=== PATIENT | female | born 1990 ===

== ENCOUNTER → 2019-08-25 14:56 | Outpatient (CLI) | payer OTHER, SELFPAY | DX: Z23 Encounter for immunization (principal) | CPT/HCPCS: 90471; 90686 ==

== ENCOUNTER → 2020-08-30 04:19 | Outpatient (CLI) | payer OTHER, SELFPAY | PROVIDERS: Referring Provider Internal Medicine; Visit Provider Internal Medicine | DX: Z23 Encounter for immunization (principal) | CPT/HCPCS: 90471; 90686 ==

== ENCOUNTER → 2021-01-16 09:04 | Outpatient (CLI) | payer OTHER, SELFPAY ==
[2021-01-16] MEDS: COVID-19 VACC, Ad26(JANSSEN)/PF 0.5 ML IM (09:21)
== END ==
PROVIDERS: Visit Provider Internal Medicine
DX: Z23 Encounter for immunization (principal)
CPT/HCPCS: 0031A; 91303

== ENCOUNTER 2021-02-20 09:54 | Emergency (ER) | payer OTHER, SELFPAY ==
[2021-02-20 10:03] VITALS: BP 125/77; PULSE 64; RESP 16; TEMP 36.1; O2SAT 100
--- NOTE | 2021-02-20 11:21 | ED.GENADULT ---
HPI - General Adult General Chief complaint: Environmental Exposure Stated complaint: needle stick, from surgical services Time Seen by Provider: 02/20/21 10:42 Source: patient Mode of arrival: Ambulatory Limitations: no limitations History of Present Illness HPI narrative: Patient is a 30-year-old female who presents with a right thumb needlestick at the happened today while at work. She states that her tetanus and hepatitis vaccines she thinks are up to date. She is unsure when her last tetanus was but she was hired 2 years ago. Onset (ago): hour(s) Related Data Home Medications Medication Instructions Recorded Confirmed No Known Home Medications 11/14/20 11/14/20 Allergies Allergy/AdvReac Type Severity Reaction Status Date / Time No Known Drug Allergies Allergy Unverified 11/14/20 09:53 Review of Systems Review of Systems Narrative: GENERAL: Denies chills,fever HEENT: Denies throat pain RESPIRATORY: Denies dyspnea, cough, wheezing CARDIOVASCULAR: Denies chest pain, palpitations GASTROINTESTINAL: Denies nausea, vomiting MUSCULOSKELETAL: Denies extremity pain, injury SKIN: See HPI NEUROLOGIC: Denies weakness, dizziness, headache, numbness 8 point review of systems is negative except for those stated above and HPI Patient History Medical History No significant medical problems Social History Smoking Status: Never smoker Smoking Status: Never smoker alcohol intake frequency: 0-2 drinks per day Substance Use Type: does not use Exam Initial Vital Signs Initial Vital Signs: Vital Signs Temperature 97.0 F L 02/20/21 10:03 Pulse Rate 64 02/20/21 10:03 Respiratory Rate 16 02/20/21 10:03 Blood Pressure 125/77 02/20/21 10:03 Pulse Oximetry 100 02/20/21 10:03 GENERAL: Well-appearing, well-nourished and in no acute distress. CARDIOVASCULAR: peripheral pulses in tact, cap refill <2 sec RESPIRATORY: No respiratory distress, speaks in full sentences without difficulty EXTREMITIES: Normal range of motion, no clubbing or edema. Neurovascularly intact NEUROLOGICAL: Cranial nerves II through XII grossly intact. Normal gait and speech. SKIN: Warm, dry, no petechiae, no rashes or lesions. Course Orders Ordered: Discontinued Medications Diphtheria/Tetanus/Acell Pertussis (Tet,Diph,Pertuss(Acell),Vac/Pf 0.5 Ml Syringe) 0.5 ml IM .ONCE ONE Stop: 02/20/21 11:34 Last Admin: 02/20/21 12:01 Dose: 0.5 ml Documented by: SAUNDRA Vital Signs Vital signs: Vital Signs - 8 hr 02/20/21 10:03 Temperature 97.0 F L Pulse Rate 64 Respiratory Rate 16 Blood Pressure 125/77 Pulse Oximetry 100 Medical Decision Making Lab Data Labs: Lab Results 02/20/21 02/20/21 Range/Units 11:03 11:03 ALT 20 (<35) IU/L Hep Bs Antigen Negative (NEGATIVE) s/c Hepatitis C Antibody Negative (NEGATIVE) s/c HIV 1&2 Ab/P24 Ag 4thGn Negative (NEGATIVE) MDM Narrative Medical decision making narrative: At this time patient has accepted a Tdap but will wait on hepatitis-B immunoglobulin and HIV treatment until sources information has returned Discharge Plan Departure Patient Disposition: Home Clinical Impression: Exposure to body fluid Instructions: How to Handle Body Fluid Exposure -- Healthcare 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
[2021-02-20 11:27] LABS: Alanine Aminotransferase 20 IU/L (<35)
[2021-02-20] MEDS: TET,DIPH,PERTUSS(ACELL),VAC/PF 0.5 ML SYRINGE IM (12:01)
[2021-02-20 12:23] LABS: Hepatitis B Surface Antigen NEGATIVE s/c (NEGATIVE)
[2021-02-20 12:34] LABS: HIV 1 & 2 Ab/Ag 4th Gen Combo NEGATIVE (NEGATIVE); Hep C Virus Ab w/Reflex Quant NEGATIVE s/c (NEGATIVE)
[2021-02-21 07:59] LABS: Hepatitis B Surf Ab Qualitativ Non Reactive (.)
== END 2021-02-20 12:11 | disposition home or self-care (01) ==
PROVIDERS: Emergency Provider Emergency Medicine
DX: Z77.21 Contact with and (suspected) exposure to potentially hazardous body fluids (principal); W26.8XXA Contact with other sharp object(s), not elsewhere classified, initial encounter; Z23 Encounter for immunization; Y99.0 Civilian activity done for income or pay
CPT/HCPCS: 36415; 90471; 99283; 90715

== ENCOUNTER → 2021-08-22 | Outpatient (CLI) | payer OTHER, SELFPAY | PROVIDERS: Referring Provider Internal Medicine; Visit Provider Internal Medicine | DX: Z23 Encounter for immunization (principal) | CPT/HCPCS: 90471; 90686 ==

== ENCOUNTER → 2023-08-31 10:40 | Outpatient (CLI) | payer OTHER, SELFPAY | PROVIDERS: Referring Provider Family Medicine; Visit Provider Family Medicine | DX: Z23 Encounter for immunization (principal) | CPT/HCPCS: 90471; 90686 ==